=== PATIENT | female | born 1975 | race Caucasian/White ===

== ENCOUNTER 2018-06-12 12:02 | Outpatient (REF) | payer OTHER, SELFPAY ==
[2018-06-12 21:55] LABS: FREE T4 1.25 ng/dL (0.76-1.46); TSH 0.05 uIU/mL (0.358-3.74)
== END 2018-06-12 12:03 ==
LOC: NCHCN 12:02
PROVIDERS: PCP Family Medicine; Visit Provider Nurse Practitioner
DX: E03.9 Hypothyroidism, unspecified (principal)
CPT/HCPCS: 84439; 84443

== ENCOUNTER 2018-10-17 07:29 | Outpatient (CLI) | payer OTHER, SELFPAY ==
[2018-10-17 08:11] LABS: Abs Immature Grans 0.02 k/cumm (0.0-0.09); Absolute Basophil Count 0.03 k/cumm (0.0-0.2); Absolute Eosinophil Count 0.03 k/cumm (0.0-0.7); Absolute Lymphocyte Count 2.65 k/cumm (1.2-3.4); Absolute Monocyte Count 0.49 k/cumm (0.11-0.7); Absolute Neutrophil Count 5.38 k/cumm (1.2-6.7); Basophils % 0.3; Eosinophils % 0.3; HCT 40.5 % (36.0-46.0); HGB 13.5 g/dL (12.0-15.5); Immature Grans % 0.2; Lymphocytes % 30.8; Mean Corp. HGB Concentration 33.3 g/dL (32.0-36.0); Mean Corpuscular Hemoglobin 31.3 pg (27.0-33.0); Monocytes % 5.7; Neutrophils % 62.7; Platelet Count 264 x1000/uL (130-400); RBC 4.31 m/cumm (4.00-5.20); RBC Distribution Width 13.1 % (11.7-14.6)
[2018-10-17 09:34] LABS: Iron 119 ug/dL (50-175); Total Iron Binding Capacity 398 ug/dL (250-450); Transferrin Sat 30 % (15-50)
[2018-10-17 10:05] LABS: ALT 15 U/L (12-78); AST 10 U/L (15-37); Albumin 3.6 g/dL (3.4-5.0); Alkaline Phosphatase 45 U/L (46-116); BUN 14 mg/dL (7-18); Bilirubin, Total 0.5 mg/dL (0.2-1.0); CREATININE 0.94 mg/dL (0.55-1.02); Calcium 9.2 mg/dL (8.5-10.1); Chloride 103 mmol/L (98-107); Cholesterol 189 mg/dL (50-200); Ferritin 46 ng/mL (8-388); Glucose 88 mg/dL (70-100); HDL Cholesterol 77 mg/dL (40-60); LDL CHOLESTEROL 93 mg/dL (<100); Potassium 3.6 mmol/L (3.5-5.1); Sodium 141 mmol/L (136-145); TSH (W/Ref FT4) 5.48 uIU/mL (0.358-3.74); Total Protein 7.2 g/dL (6.4-8.2); Triglyceride 122 mg/dL (30-150); Vitamin B12 840 pg/mL (193-986)
[2018-10-17 10:32] LABS: FREE T4 0.94 ng/dL (0.76-1.46)
== END 2018-10-17 07:49 ==
PROVIDERS: PCP Family Medicine; Visit Provider Nurse Practitioner
DX: R53.83 Other fatigue (principal); Z00.00 Encounter for general adult medical examination without abnormal findings
CPT/HCPCS: 36415; 80053; 80061; 83721; 82607; 82728; 83540; 83550; 84439; 84443; 85025

== ENCOUNTER 2018-11-13 12:43 | Outpatient (REF) | payer OTHER, SELFPAY ==
[2018-11-13 21:07] LABS: TSH (W/Ref FT4) 3.74 uIU/mL (0.358-3.74)
== END 2018-11-13 13:03 ==
LOC: NCHCN 12:43
PROVIDERS: PCP Family Medicine; Visit Provider Nurse Practitioner
DX: E03.9 Hypothyroidism, unspecified (principal)
CPT/HCPCS: 84443

== ENCOUNTER 2019-09-08 10:24 | Outpatient (CLI) | payer OTHER, SELFPAY ==
[2019-09-08 12:29] LABS: TSH (W/Ref FT4) 0.91 uIU/mL (0.36-3.74)
== END 2019-09-08 10:44 ==
PROVIDERS: Specialist/Technologist Athletic Trainer; PCP Family Medicine; Visit Provider Family Medicine
DX: E03.9 Hypothyroidism, unspecified (principal)
CPT/HCPCS: 36415; 84443

== ENCOUNTER 2019-09-09 09:45 | Outpatient (REF) | payer OTHER, SELFPAY ==
[2019-09-09 14:01] LABS: C-Reactive Protein 0.08 mg/dL (0.0-0.3)
[2019-09-09 14:52] LABS: ESR 5 mm/hr (0-20)
[2019-09-10 22:08] LABS: Anaplasma phagocytophilum Negative (Negative); B. miyamotoi PCR Negative (Negative); Babesia divergens/MO-1 Negative (Negative); Babesia duncani Negative (Negative); Babesia microti Negative (Negative); Ehrlichia chaffeensis Negative (Negative); Ehrlichia ewingii/canis Negative (Negative); Ehrlichia muris eauclairensis Negative (Negative)
[2019-09-11 14:25] LABS: Lyme Ab w Rflx to Lyme Confirm Negative (Negative)
== END 2019-09-09 10:05 ==
LOC: NCHCN 09:45
PROVIDERS: PCP Family Medicine; Visit Provider Specialist/Technologist Athletic Trainer
DX: M79.10 Myalgia, unspecified site (principal)
CPT/HCPCS: 85652; 87798; 86140; 86618

== ENCOUNTER 2020-08-09 16:10 | Outpatient (CLI) | payer OTHER, SELFPAY ==
[2020-08-09 17:33] LABS: TSH (W/Ref FT4) 2.37 uIU/mL (0.36-3.74)
== END 2020-08-09 16:30 ==
PROVIDERS: PCP Family Medicine; Visit Provider Family Medicine
DX: E03.9 Hypothyroidism, unspecified (principal)
CPT/HCPCS: 36415; 84443

== ENCOUNTER 2020-09-14 12:05 | Outpatient (REF) | payer OTHER, SELFPAY ==
[2020-09-29 15:16] LABS: T3, Total 98 ng/dL
[2020-09-29 15:17] LABS: T3,Free 2.9 pg/mL
== END 2020-09-14 12:25 ==
LOC: NCHCN 12:05
PROVIDERS: PCP Family Medicine; Visit Provider Family Medicine
DX: R53.83 Other fatigue (principal)
CPT/HCPCS: 84480; 84481

== ENCOUNTER 2020-12-07 10:57 | Outpatient (CLI) | payer OTHER, SELFPAY ==
--- OUTSIDE RECORDS SUMMARY | 2020-12-07 11:00 | XMS_ITS ---
:1975 Author Care Team Providers Name Role Phone GLENN HALE MD Referring Provider [phone] SONJA LAGUNAS Primary Care Provider [phone] Allergies Code Code System Name Reaction Severity Status Onset [id number] RxNorm Biaxin Hives ? Active ? Sulfa Hives ? Active ? (Sulfonamide Antibiotics) Medications Name Status Start Date Stop Date ? ? amoxicillin 875 mg-potassium Completed ? clavulanate 125 mg tablet Culturelle Active ? Not available levothyroxine 50 mcg tablet Completed ? 05/29 levothyroxine 75 mcg tablet Completed ? 05/29 multivitamin Active ? Not available nitrofurantoin Completed ? 06/17/2018 monohydrate/macrocrystals 100 mg capsule NuvaRing 0.12 mg-0.015 mg/24 hr vaginal Completed ? 06/17/2018 oxycodone 5 mg tablet Completed ? 06/17/2018 tramadol 50 mg tablet Completed ? 06/17/2018 TriNessa (28) 0.18 mg(7)/0.215 Active ? N ot available mg(7)/0.25 mg(7)-35 mcg tablet Problems Name Status Onset Date Source ? Mammography Abnormal Active 06/17/2018 ? Procedures Date Name Performed by ? ? Other Information not kyle wells Notes: leep ? Surgical Breast Biopsy Information not a vailable Notes: FA left breast age 19 Results Lab Results None recorded. Past Encounters None recorded. Social History Tobacco Smoking Status Never Smoker Vaccine List None recorded. Plan of Care Reminders Provider Appointments None ? ? recorded. Lab None ? ? recorded. Referral None ? ? recorded. Procedures None ? ? recorded. Surgeries None ? ? recorded. Imaging None ? ? recorded. Vitals Height Weight BMI 5 ft 6 in 135 lbs 21.8 kg/m2
[2020-12-07 12:03] LABS: FREE T4 1.15 ng/dL (0.76-1.46); TSH 3.56 uIU/mL (0.36-3.74)
[2020-12-07 16:40] LABS: T3,Free 3.6 pg/mL (2.8-5.3)
== END 2020-12-07 10:58 | disposition home or self-care (01) ==
PROVIDERS: PCP Family Medicine; Visit Provider Family Medicine
DX: E03.9 Hypothyroidism, unspecified (principal)
CPT/HCPCS: 36415; 84439; 84443; 84481

== ENCOUNTER 2021-01-13 21:53 | Emergency (ER) | payer OTHER, SELFPAY ==
--- NOTE | 2021-01-13 21:53 | ED.GENADUL_ITS ---
Discharge Plan Disposition Patient Disposition: HOME Condition: Good Discharge Details Clinical Impression: Urticarial rash, Acute epigastric pain Primary Care Provider: Christi Rodriguez ED Provider: Christie Ortiz Home Meds and New Rx's Prescriptions: New hydroxyzine HCl 25 mg tablet 25 mg PO QID PRN (Reason: itching) Qty: 20 RF: 0 prednisone 10 mg tablet 10 mg PO DAILY Qty: 42 RF: 0 sucralfate [Carafate] 1 gram tablet 1 g PO QACHS Qty: 60 RF: 0 Continued levothyroxine 75 mcg tablet 75 mcg PO DAILY RF: 0 liothyronine 5 mcg tablet 5 mcg PO DAILY RF: 0 Discharge Instructions Instructions: Hydroxyzine (By injection), Urticaria (ED) Additional Instructions: Your imaging and labs are reassuring here today. You may use the hydroxyzine as prescribed to help with symptomatic management. You may also try [id number] antihistamines. Continue with your treatment for presumed GERD. Please follow-up with your primary care next 1 to 2 weeks for reevaluation. If you develop any new or worsening symptoms please seek care urgently once again. Referrals: Christi Rodriguez [Primary Care Provider] - Discharge Data Discharge Date/Time-TO BE ENTERED AT DEPARTURE: 01/13/21 23:55 Medical Decision Making <Sanjuanita Villarreal DO - Last Filed: 01/16/21 08:42> Chart clicked into in error by me while in the emergency department. <MICHELLE Covarrubias - Last Filed: 01/14/21 19:15> On the evening of 01-14-21 at approximately 1900 I received a call from radiology, Dr. Steele. He over read the CT imaging performed yesterday as subtle abnormal enhancement in the inferior aspect of the right hepatic lobe without a distinct mass or cyst at this level. Correlation with appropriate hepatic blood work is recommended. Recommend follow-up imaging with MRI. Approximately 1910 I was able to speak with the patient regarding the over read. She is aware, has no additional questions or concerns, and will follow up as an outpatient appropriately. <MICHELLE Sotelo - Last Filed: 01/15/21 21:53> Patient is a pleasant 28 year old female with PMH of hypothyroidism, presenting today with c/c of abdominal pain and rash. She states that the abdominal pain is in the epigasric and RUQ region. Reports that this radiates into the central chest. No poor taste in her mouth. States that symptoms can improve after burping or with PPI. She has not found pain significantly increased with PO intake. Has also started noting an intermittent, migratory urticarial rash. On exam, patient appears nontoxic. VS are stable. She initially had rash on the tops of her shoulders but this then came on a while later on her back. This has a raised urticarial appearance. She reports severe itching, will give Claritin for sympatomic relief. Lungs clear, normal cardiac exam. Tenderness to epigastric and RUQ but no peritoneal findings. Negative Hernandez's sign. Concerned for GERD, GB disease, pancreatitis vs. other. Find ACS less likely but plan to evaluate further with troponin and ECG. Patient has no pleuritic pain. She is PERC negative. Hx and exam is not consistent with dissection. ECG was reviewed by physician. Two ECG were obtained, one revealed NSR and another atrial bigeminy. She is not endorsing any palpitations. She did recently start on liothyronine and is wondering if this is related. She states she recently had her thyroid function checked through her PCP which was normal, will hold off on retesting at this time. Patient would like to discuss this medication possibly causing her symptoms further with her PCP. Labs reviewed. No acute abnormality on CBC, CMP, lipase, troponin. CT reviewed by radiologist: FINDINGS: Lungs: Hyperinflation. Pleural spaces: Unremarkable. No pneumothorax. No pleural effusion. Heart: Unremarkable. No cardiomegaly. No pericardial effusion. Mediastinal space: Normal esophagus. Aorta: Unremarkable. No aortic aneurysm. Lymph nodes: No adenopathy. Bones/joints: Unremarkable. No acute fracture. Soft tissues: Unremarkable. IMPRESSION: No acute findings. FINDINGS: Liver: Normal. No mass. Gallbladder and bile ducts: Normal. No calcified stones. No ductal dilation. Pancreas: Normal. No ductal dilation. Spleen: Normal. No splenomegaly. Adrenal glands: Normal. No mass. Kidneys and ureters: Normal. No hydronephrosis. Stomach and bowel: Unremarkable. No obstruction. No mucosal thickening. Appendix: Normal appendix. Intraperitoneal space: No free intraperitoneal gas. No ascites. Vasculature: Unremarkable. No abdominal aortic aneurysm. Lymph nodes: Unremarkable. No enlarged lymph nodes. Urinary bladder: Unremarkable as visualized. Reproductive: Anteverted uterus. 3.2 cm left ovarian cyst with trace surrounding free fluid 1.8 cm right ovarian cyst. Bones/joints: Unremarkable. No acute fracture. Soft tissues: Unremarkable. IMPRESSION: 1. Involuting 3.2 cm left ovarian cyst suspected. 2. 1.8 cm right ovarian cyst. Discussed findings with the patient. Will prescribe atarax as the itching has made it difficult for her to sleep. She will continue with OTC medications to help with symptomatic management. She will try to identify possible triggers for rash. Return precautions were discussed. Advised f/u with PCP. All of her questions and concerns were addressed, she is in agreement wit his plan. After discharge, patient and I discussed prednisone once again. She would like to try steroids for her severe urticarial rash. She did have her COVID 19 vaccine one month ago not long prior to her onset of symptoms. Quesitoning if this could be related. Spoke with patient again after her discharge. Initially she had not had much response to carafate but has found this more helpful now. Is requesting presciption for this. HPI <Sanjuanita Villarreal DO - Last Filed: 01/16/21 08:42> General Date/Time Provider Initiated Documentation: 01/13/21 21:53 . Related Data Home Medications Medication Instructions Recorded Confirmed hydroxyzine HCl 25 mg PO QID PRN #20 tab 01/13/21 levothyroxine 75 mcg PO DAILY 01/13/21 01/13/21 liothyronine 5 mcg PO DAILY 01/13/21 01/13/21 prednisone 10 mg PO DAILY #42 tab 01/13/21 sucralfate [Carafate] 1 g PO QACHS #60 tab 01/15/21 Previous Rx's Medication Instructions Recorded hydroxyzine HCl 25 mg PO QID PRN #20 tab 01/13/21 prednisone 10 mg PO DAILY #42 tab 01/13/21 sucralfate [Carafate] 1 g PO QACHS #60 tab 01/15/21 Allergies Allergy/AdvReac Type Severity Reaction Status Date / Time clarithromycin Allergy Intermediate Verified 01/13/21 22:39 Sulfa (Sulfonamide Allergy Intermediate Verified 01/13/21 22:39 Antibiotics) <MICHELLE Sotelo - Last Filed: 01/15/21 21:53> General Mode of arrival: ambulatory . Limitations to Documentation: no limitations . Information obtained by: patient and RN notes reviewed . History of Present Illness 45 year old F presents to the emergency department with the chief complaint of abdominal discomfort, weight loss, rash, described as moderate (pain can wax and wane, can become severe), Quality is described as burning, and is localized to the chest and abdomen. Patient reports no radiation. Patient started experiencing this week(s) and it has been intermittent. Medication improves symptom(s), (can have brief imporvement with TUMS, carafate or ) No exacerbating factors reported . Patient notes chest pain, loss of appetite (has lost 10lb) and rash (migratory urticarial rash); denies diaphoresis, fever/chills, nausea/vomiting and shortness of breath. Patient did receive the following treatments prior to arrival, other (antiinflammator ies, PPI) <MICHELLE Sotelo - Last Filed: 01/15/21 21:53> Constitutional Constitutional: Reports as per HPI, Denies chills, Denies fever(s), Denies headache(s) and Reports weight loss Eyes Eyes: Denies change in vision ENT Ears, Nose, Mouth, and Throat: Denies dizziness and Denies headache(s) Cardiovascular Cardiovascular: Reports as per HPI, Reports chest pain at rest, Denies chest pain with activity, Denies leg edema, Denies radiating jaw, neck or arm pain, Denies dyspnea and Denies dyspnea on exertion Respiratory Respiratory: Reports as per HPI, Denies chest congestion, Denies cough, Denies pain on inspiration, Denies pain with cough, Denies dyspnea, Denies dyspnea on exertion and Denies wheezing Gastrointestinal Gastrointestinal: Reports as per HPI, Reports abdominal pain (RUQ and epigastric pain), Denies hematochezia, Denies change in bowel habits, Denies coffee ground emesis, Denies diarrhea, Denies nausea and Denies vomiting Genitourinary Genitourinary: Reports system reviewed and no additional complaints, except as documented (denies change in urinary habits) Musculoskeletal Musculoskeletal: Reports as per HPI and Denies back pain Integumentary/Breasts Skin/Breast: Reports as per HPI and Reports rash Neurologic Neurologic: Reports as per HPI, Denies dizziness and Denies headache(s) Allergic/Immunologic Allergic/Immunologic: Denies wheezing PFSH <Sanjuanita J Bugbee, DO - Last Filed: 01/16/21 08:42> Social History Smoking risk assessment performed?: No Substance use type: does not use Do you feel safe at home: Yes Do you feel safe in your relationship?: Yes <MICHELLE Sotelo - Last Filed: 01/15/21 21:53> Const General: cooperative, healthy appearing, comfortable, no acute distress and well developed Nutritional Appearance: average body habitus and well nourished Orientation: alert, awake and oriented x3 HENMT Head: normal to inspection Ears: hearing grossly normal bilaterally Mouth: moist mucous membranes Resp Effort & Inspection: normal respiratory effort, able to speak in complete sentences and no respiratory distress Auscultation: clear to auscultation bilaterally, no rales, no rhonchi and no wheezes Cardio Rate: regular rate Rhythm: regular rhythm Heart Sounds: S1 normal and S2 normal GI Inspection: normal to inspection, no edema and non-distended Palpation: soft, no hepatosplenomegaly, not firm, no guarding, not rigid and tender in the epigastrum and in the RUQ; Hernandez's sign negative Auscultation: normal bowel sounds Back/Spine/Pelvis Thoracic/Lumbar Spine: other (rash) Skin Rashes: rashes noted (rash initially on shoulders, moved to back. Raised, urticarial rash) and other (excoriated regions) Neuro General: patient alert, patient awake and patient oriented x3 Cognition: normal cognition Speech: speech normal Gait: normal gait Extrem General: normal to inspection, capillary refill normal, no pedal edema, no calf tenderness and normal gait Psych Appearance: grossly normal and well kempt Mental Status: mental status grossly normal Speech and Movement: speech and movement normal
--- NOTE | 2021-01-13 22:00 | RT.EKG_ITS ---
APPROVED REPORT Exam: Resting ECG Patient Location: E HR:74 bpm ECG Measurements Heart Rate 74 AXIS NE 136 P 80 QRSd 104 QRS 71 QT 398 T 85 QTc 443 Conclusion Sinus rhythm...normal P axis, V-rate 60- 99 Supraventricular bigeminy...bigeminy string>4 w/ SV complexes I have reviewed and interpreted ECG and agree with software generated interpretation.
[2021-01-13 22:04] VITALS: BP 115/73; PULSE 73; RESP 15; TEMP 36.4; O2SAT 98
[2021-01-13] MEDS: Loratidine 10 MG TAB 20 MG PO (22:10)
[2021-01-13 22:16] LABS: Abs Immature Grans 0.02 10^3/uL (0.0-0.06); Absolute Basophil Count 0.04 10^3/uL (0.0-0.2); Absolute Eosinophil Count 0.16 10^3/uL (0.0-0.7); Absolute Lymphocyte Count 3.26 10^3/uL (1.2-3.4); Absolute Monocyte Count 0.46 10^3/uL (0.1-0.8); Absolute Neutrophil Count 3.27 10^3/uL (1.2-6.7); Basophils % 0.6; Eosinophils % 2.2; HCT 43.2 % (36.0-46.0); HGB 14.4 g/dL (11.2-15.7); Immature Grans % 0.3; Lymphocytes % 45.2; MCH 31.2 pg (27.0-33.0); MCHC 33.3 % (32.0-36.0); MCV 93.7 fL (80-95); MPV 10.2 fL (8.0-11.0); Monocytes % 6.4; Neutrophils % 45.3; Nucleated RBC 0 %; Platelet Count 285 10^3/uL (130-400); RBC 4.61 10^6/uL (3.93-5.22); RDW 12.3 % (11.7-14.6); RDW-SD 42.5 fL; WBC 7.21 10^3/uL (4.4-10.8)
--- NOTE | 2021-01-13 22:23 | DI.CT_ITS ---
EXAM: CT CHEST/ABD/PEL W CLINICAL HISTORY: low CP/RUQ/epigastric pain, urticaria. TECHNIQUE: Imaging Protocol: Axial computed tomography images with coronal and sagittal reformatted images were created and reviewed CONTRAST MATERIAL: Intravenous: Omnipaque 350 Contrast volume:100 ml Oral: None COMPARISON: No exams were available for comparison FINDINGS: CHEST: LUNGS: Lungs are clear with no infiltrates nor pleural effusions. No ominous pulmonary nodules. MEDIASTINUM: There is no hilar nor mediastinal adenopathy. Visualized thyroid unremarkable. CARDIAC: Heart size is normal. There is no pericardial effusion.Caliber of the thoracic aorta is wit hin normal limits. OSSEOUS: No significant osseous lesions.. ABDOMEN: There is no ascites. LIVER: Slight irregularity of the enhancement pattern the inferior aspect of the right hepatic lobe i s noted but without a distinct mass at this level. There is no perihepatic ascites. No significant steatosis. GALLBLADDER/BILIARY: No obvious gallbladder pathology. CBD diameter is slightly prominent measuring 7.5-8 millimeters. There is no calculus evident in the lower CBD. No obvious pancreatic head mass. PANCREAS: No evidence of pancreatic mass nor dilatation of the pancreatic duct. SPLEEN: Spleen is not enlarged. There are no intrasplenic lesions. Splenic and portal veins are gustafson nt. ADRENALS: There are no significant adrenal masses. KIDNEYS: No calculi nor hydronephrosis. No solid renal masses. No cysts evident. ABDOMINAL AORTA: Abdominal aorta is not enlarged. LYMPH NODES: There is no retroperitoneal nor paraaortic adenopathy. ABDOMINAL WALL/GI: No evidence of significant anterior abdominal wall hernia. No bowel obstruction. PELVIS: LYMPH NODES: There is no intrapelvic nor inguinal adenopathy. GI: No evidence of appendicitis.No evidence of sigmoid diverticulitis. URINARY BLADDER: No calculi nor masses evident REPRODUCTIVE: Uterus is anteverted. In the high left adnexa there is a 2.6 by 2.7 cm cystic structur e which may be ovarian. Smaller ovarian cyst is seen on the opposite-right side. No obvious free fl uid in the pelvis. OSSEOUS: No significant osseous lesions. IMPRESSION: 1. In the high left adnexa there is a 2.7 x 2.6 centimeter cystic structure which is probably ovarian . Smaller cysts noted in the right adnexa. No free fluid. 2. There is subtle abnormal enhancement in the inferior aspect of the right hepatic lobe without a di stinct mass or cyst at this level. Correlation with appropriate hepatic blood work is recommended. Recommend follow-up imaging with MRI. 3. Mild dilatation of the CBD for this age group. No obvious calculus nor mass in the lower CBD. No pancreatic head mass evident. The pancreatic duct is not dilated. This study was 1st read by [facility]. Final report called by myself to [facility] ER provider Saturday01/14/2021 RADIATION DOSE DELIVERED: 896.52mGy.cm Total DLP DATA REPOSITORY: All CT scans at this facility are submitted to the National Radiology Data Registry (NRDR) Dose Index Registry (DIR) with the [employer] (A[employer]). RADIATION OPTIMIZATION: All CT scans at this facility use at least one of these dose optimization te chniques: automated exposure control; mA and/or kV adjustment per patient size (includes targeted exa ms where dose is matched to clinical indication); or iterative reconstruction.
[2021-01-13] MEDS: Normal Saline - Diluent 50 ML VIAL IV (22:29)
[2021-01-13] MEDS: Omnipaque 350 MG/ML 100 ML BTL IJ (22:30)
[2021-01-13 22:33] LABS: ALT 18 U/L (14-59); AST 12 U/L (15-37); Albumin 3.8 g/dL (3.4-5.0); Alkaline Phosphatase 55 U/L (46-116); Anion Gap 9.6 mmol/L (3-11); BUN 22 mg/dL (7-18); Bilirubin, Total 0.5 mg/dL (0.2-1.0); CO2 27.4 mmol/L (21.0-32.0); Calcium 8.9 mg/dL (8.5-10.1); Chloride 105 mmol/L (98-107); Glucose 87 mg/dL (74-106); Lipase 227 U/L (73-393); Magnesium 2.1 mg/dL (1.8-2.4); Potassium 3.5 mmol/L (3.5-5.1); Sodium 142 mmol/L (136-145); Total Protein 7.7 g/dL (6.4-8.2)
[2021-01-13] MEDS: Lactated Ringers 1,000 ML 1000 ML IV (22:36)
[2021-01-13 22:39] LABS: Troponin I < 0.05 ng/mL (<0.06)
[2021-01-13] MEDS: hydrOXYzine HCL 25 MG TAB 100 MG PO (22:40)
--- NOTE | 2021-01-13 22:41 | DI.VRAD_ITS ---
PROCEDURE INFORMATION: Exam: CT Chest With Contrast; Diagnostic Exam date and time: 01/13/2021 10:05 PM Age: 45 years old Clinical indication: Abdominal pain; Type not specified; Patient HX: Low chest pain/ruq pain, . epigastric pain, urticaria TECHNIQUE: Imaging protocol: Diagnostic computed tomography of the chest with contrast. Radiation optimization: All CT scans at this facility use at least one of these dose optimization techniques: automated exposure control; mA and/or kV adjustment per patient size (includes targeted exams where dose is matched to clinical indication); or iterative reconstruction. Contrast material: OMNI-PAQUE 350; Contrast volume: 100 ml; Contrast route: INTRAVENOUS (IV); COMPARISON: No relevant prior studies available. FINDINGS: Lungs: Hyperinflation. Pleural spaces: Unremarkable. No pneumothorax. No pleural effusion. Heart: Unremarkable. No cardiomegaly. No pericardial effusion. Mediastinal space: Normal esophagus. Aorta: Unremarkable. No aortic aneurysm. Lymph nodes: No adenopathy. Bones/joints: Unremarkable. No acute fracture. Soft tissues: Unremarkable. IMPRESSION: No acute findings. PROCEDURE INFORMATION: Exam: CT Abdomen And Pelvis With Contrast Exam date and time: 01/13/2021 10:05 PM Age: 45 years old Clinical indication: Abdominal pain; Type not specified; Patient HX: Low chest pain/ruq pain, . epigastric pain, urticaria TECHNIQUE: Imaging protocol: Computed tomography of the abdomen and pelvis with contrast. Radiation optimization: All CT scans at this facility use at least one of these dose optimization techniques: automated exposure control; mA and/or kV adjustment per patient size (includes targeted exams where dose is matched to clinical indication); or iterative reconstruction. Contrast material: OMNI-PAQUE 350; Contrast volume: 100 ml; Contrast route: INTRAVENOUS (IV); COMPARISON: No relevant prior studies available. FINDINGS: Liver: Normal. No mass. Gallbladder and bile ducts: Normal. No calcified stones. No ductal dilation. Pancreas: Normal. No ductal dilation. Spleen: Normal. No splenomegaly. Adrenal glands: Normal. No mass. Kidneys and ureters: Normal. No hydronephrosis. Stomach and bowel: Unremarkable. No obstruction. No mucosal thickening. Appendix: Normal appendix. Intraperitoneal space: No free intraperitoneal gas. No ascites. Vasculature: Unremarkable. No abdominal aortic aneurysm. Lymph nodes: Unremarkable. No enlarged lymph nodes. Urinary bladder: Unremarkable as visualized. Reproductive: Anteverted uterus. 3.2 cm left ovarian cyst with trace surrounding free fluid 1.8 cm right ovarian cyst. Bones/joints: Unremarkable. No acute fracture. Soft tissues: Unremarkable. IMPRESSION: 1. Involuting 3.2 cm left ovarian cyst suspected. 2. 1.8 cm right ovarian cyst. Dictated and Authenticated by: Roberto Veras MD. Ordering:JONNA Soriano MD
== END 2021-01-13 23:55 | disposition home or self-care (01) ==
PROVIDERS: Emergency Provider Physician Assistant; PCP Family Medicine
DX: R10.13 Epigastric pain (principal); L50.8 Other urticaria
CPT/HCPCS: 74177; 80053; 81025; 83690; 93005; 99285; 71260; 83735; 84484; 85025; 93010; 99283; J3490

== ENCOUNTER 2021-01-16 09:05 | Outpatient (CLI) | payer OTHER, SELFPAY ==
--- NOTE | 2021-01-16 08:37 | DI.MRI_ITS ---
EXAM: MR ABDOMEN WO/W CLINICAL HISTORY: right hepatic lobe enhancement on CT TECHNIQUE: Multiplanar multisequence MRI was performed with both pre and post contrast infused seque nces. Contrast injected sequences were performed following IV injection of 11 cc of Dotarem. COMPARISON: CT CT CHEST/ABD/PEL W from 01/13/2021 FINDINGS: VISUALIZED LUNG BASES: No pleural effusions evident. LIVER: Liver size is normal. There is no significant steatosis. There are no discrete focal hepatic lesions identified. No cysts nor hemangiomas evident in the liver. In addition, the area of asymme tric enhancement in the inferior right hepatic lobe seen on the recent CT scan does not exhibit signi ficant signal abnormality nor abnormal enhancement pattern on today's contrast infused MRI. There is , however, a tiny amount of fluid subjacent to the right hepatic lobe. BILIARY: There is no obvious gallbladder pathology. The CBD is not dilated. PANCREAS: There is no evidence of pancreatic mass nor dilatation of the pancreatic duct.No peripancre atic fluid collection. SPLEEN: Spleen is not enlarged and there are no intrasplenic lesions.Splenic and portal veins are pat ent ADRENALS: There are no significant adrenal masses. KIDNEYS: No solid renal masses. No hydronephrosis.No cysts evident. ABDOMINAL AORTA: Not enlarged and there is no significant para-aortic adenopathy. ANTERIOR ABDOMINAL WALL/GI: There is no evidence of significant anterior abdominal wall hernia in the field of view of this study.Is no evidence of obvious bowel obstruction. OSSEOUS: There are no lytic osseous lesions in the field of view of this study. IMPRESSION: 1. No significant focal hepatic findings. The inferior aspect of the right hepatic lobe (which exhib ited slightly abnormal enhancement on recent CT scan) appears unremarkable on this MRI examination. No evidence of mass, cyst, or hemangioma in the liver. There is, however, a tiny amount of fluid sub jacent to the right attempts-subjacent to the inferior tip of the right hepatic lobe. This is minima l. 2. No other significant findings on this MRI scan of the upper abdomen. 3. DATA REPOSITORY:
[2021-01-16] MEDS: Gadoterate meglumine 20 ML VIAL 11 ML IVP (13:04)
== END 2021-01-16 09:25 ==
PROVIDERS: PCP Family Medicine; Visit Provider Physician Assistant
DX: R93.2 Abnormal findings on diagnostic imaging of liver and biliary tract (principal); K76.89 Other specified diseases of liver
CPT/HCPCS: 74183

== ENCOUNTER 2021-02-24 02:22 | Outpatient (CLI) | payer OTHER, SELFPAY ==
[2021-02-24 10:24] LABS: Source Nasal/Nares
[2021-02-24 13:33] LABS: COVID-19 PCR Negative (Negative)
== END 2021-02-24 02:23 | disposition home or self-care (01) ==
PROVIDERS: PCP Family Medicine; Visit Provider Surgery Plastic and Reconstructive Surgery
DX: Z20.822 Contact with and (suspected) exposure to COVID-19 (principal); Z01.818 Encounter for other preprocedural examination
CPT/HCPCS: 87635

== ENCOUNTER 2021-05-26 07:22 | Outpatient (CLI) | payer OTHER, SELFPAY ==
[2021-05-26 08:17] LABS: Source Nasal/Nares
[2021-05-26 09:09] LABS: COVID-19 PCR Negative (Negative)
== END 2021-05-26 07:23 | disposition home or self-care (01) ==
PROVIDERS: PCP Family Medicine; Visit Provider Student in an Organized Health Care Education/Training Program
DX: Z20.822 Contact with and (suspected) exposure to COVID-19 (principal)
CPT/HCPCS: 87635

== ENCOUNTER 2022-11-23 22:46 | Emergency (ER) | payer OTHER, SELFPAY ==
[2022-11-23 22:46] VITALS: BP 112/64; PULSE 91; RESP 16; TEMP 36.1; O2SAT 100
[2022-11-23] MEDS: Dexamethasone 10 MG/ML VIAL PO (22:50)
[2022-11-23] MEDS: Ketorolac 60 MG/2 ML VIAL IM (22:51)
--- NOTE | 2022-11-23 22:53 | W.ED.GENAD ---
Discharge Plan Disposition Patient Disposition: Home Condition: Stable Discharge Details Clinical Impression: URI (upper respiratory infection) Primary Care Provider: Christi Rodriguez ED Provider: Tracy Monreal Home Meds and New Rx's Prescriptions: No Action multivitamin Tablet 1 tab PO DAILY calcium carb,lactat-vitamin D3 200 mg-6.25 mcg (250 unit) tablet See Rx Instructions PO DAILY Rx Instructions: orally daily; Hair,Skin and Nails Tablet 1 tab PO DAILY levothyroxine 75 mcg tablet 75 mcg PO DAILY liothyronine 5 mcg tablet 5 mcg PO DAILY Label Comments: TAKE 1 TABLET BY MOUTH EVERY DAY Discharge Instructions Instructions: Upper Respiratory Infection (ED) Referrals: Christi Rodriguez [Primary Care Provider] - Return if symptoms worsen Medical Decision Making 47-year-old female presents to the ER with chief complaint of sore throat, body aches chills and URI type symptoms last few days. She has had negative rapid COVID test prior to arrival. 60 mg IM Toradol, 10 of dexamethasone PO and rapid strep swab ordered. Rapid strep negative. Patient's presentation consistent with viral illness. Patient discharged. This text was generated using [employer] system, please disregard any oddities of phrase or misspellings. HPI General Mode of arrival: ambulatory. Date/Time Provider Initiated Documentation: 11/23/22 22:47. Limitations to Documentation: no limitations. Information obtained by: patient, RN notes reviewed and old records reviewed. HPI Narrative: 47-year-old female presents to the ER with chief complaint of sore throat, body aches chills and URI type symptoms last few days. She has had negative rapid COVID test prior to arrival. She has been taking Tylenol and ibuprofen. Past medical history includes Hypothyroidism. Related Data Home Medications Medication Instructions Recorded Confirmed levothyroxine 75 mcg tablet 75 mcg PO DAILY 01/13/21 11/23/22 liothyronine 5 mcg tablet 5 mcg PO DAILY 01/13/21 11/23/22 calcium carb and lactate 200 See Rx Instructions PO DAILY 07/19/22 11/23/22 mg-vitamin D3 6.25 mcg (250 unit) tablet multivitamin 1 tab PO DAILY 07/19/22 11/23/22 multivitamin with minerals 1 tab PO DAILY 08/02/22 11/23/22 (Hair,Skin and Nails tablet) Allergies Allergy/AdvReac Type Severity Reaction Status Date / Time clarithromycin Allergy Intermediate Verified 11/23/22 23:10 Sulfa (Sulfonamide Allergy Intermediate Verified 11/23/22 23:10 Antibiotics) General PA: 3 Review of Systems Constitutional Constitutional: Reports body ache(s), Reports chills and Reports headache(s) ENT Ears, Nose, Mouth, and Throat: Reports as per HPI, Denies otalgia, Reports headache(s), Reports nasal congestion and Reports sore throat Cardiovascular Cardiovascular: Denies chest pain and Denies dyspnea Respiratory Respiratory: Denies dyspnea Gastrointestinal Gastrointestinal: Denies diarrhea, Denies nausea and Denies vomiting Neurologic Neurologic: Reports headache(s) PFSH All Active Problems (Updated 11/23/22 @ 23:00 by Tracy Monreal NP) Urticarial rash (Acute) Acute epigastric pain (Acute) URI (upper respiratory infection) (Acute) Encounter for screening for other viral diseases (Acute) Social History Smoking/Tobacco Use Status: Never Smoking risk assessment performed?: Yes Alcohol Intake: never Substance use type: does not use Do you feel safe at home: Yes Do you feel safe in your relationship?: Yes Exam HENMT Head: normal to inspection General nose exam: external nose normal Mouth: moist mucous membranes and no drooling Throat: posterior oropharynx abnormal erythema Resp Effort & Inspection: able to speak in complete sentences and no cough Auscultation: clear to auscultation bilaterally Cardio Rate: regular rate Rhythm: regular rhythm
== END 2022-11-23 23:09 | disposition home or self-care (01) ==
LOC: ER 23:15
PROVIDERS: Emergency Provider Registered Nurse Emergency; PCP Family Medicine
DX: J06.9 Acute upper respiratory infection, unspecified (principal)
CPT/HCPCS: 87880; 96372; 99284; 87081; 99283; J1100; J1885

== ENCOUNTER 2022-12-23 04:06 | Emergency (ER) | payer OTHER, SELFPAY ==
--- NOTE | 2022-12-23 04:27 | ED.GENADUL_ITS ---
Discharge Plan Disposition Patient Disposition: Home Condition: Stable Discharge Details Clinical Impression: UTI (urinary tract infection) Primary Care Provider: Christi Rodriguez ED Provider: Sanjuanita Villarreal Home Meds and New Rx's Prescriptions: Continued multivitamin Tablet 1 tab PO DAILY calcium carb,lactat-vitamin D3 200 mg-6.25 mcg (250 unit) tablet See Rx Instructions PO DAILY Rx Instructions: orally daily; Hair,Skin and Nails Tablet 1 tab PO DAILY levothyroxine 75 mcg tablet 75 mcg PO DAILY liothyronine 5 mcg tablet 5 mcg PO DAILY Patient Comments: TAKE 1 TABLET BY MOUTH EVERY DAY Discharge Instructions Instructions: Urinary Tract Infection in Women (ED) Additional Instructions: Your lab findings are consistent with a urinary tract infection. Take the antibiotic as directed until finished Follow-up with your primary care doctor in 1 week. Return to the emergency department with any worsening or new concerning symptoms. Discharge Data Discharge Date/Time-TO BE ENTERED AT DEPARTURE: 12/23/22 07:24 Discharge Physician: Sanjuanita Villarreal Medical Decision Making 47-year-old female presents with suprapubic pressure and dysuria for the past 2 days. Urinalysis notes findings consistent with UTI. Cipro ordered. Prescription provided. Follow-up as needed. Medical Records Medical records reviewed: Yes I reviewed the patient's medical records. HPI General Mode of arrival: ambulatory . Date/Time Provider Initiated Documentation: 12/23/22 04:07 . Limitations to Documentation: no limitations . Information obtained by: patient . HPI Narrative: Pt is a 47yo F who presents to the ED w/ a c/o suprapubic pressure and dysuria for the past 2 days. Patient denies fever, nausea, vomiting, hematuria, urinary frequency or back pain. Related Data Home Medications Medication Instructions Recorded Confirmed levothyroxine 75 mcg tablet 75 mcg PO DAILY 01/13/21 11/23/22 liothyronine 5 mcg tablet 5 mcg PO DAILY 01/13/21 11/23/22 calcium carb and lactate 200 See Rx Instructions PO DAILY 07/19/22 11/23/22 mg-vitamin D3 6.25 mcg (250 unit) tablet multivitamin 1 tab PO DAILY 07/19/22 11/23/22 multivitamin with minerals 1 tab PO DAILY 08/02/22 11/23/22 (Hair,Skin and Nails tablet) Allergies Allergy/AdvReac Type Severity Reaction Status Date / Time clarithromycin Allergy Intermediate Verified 11/23/22 23:10 Sulfa (Sulfonamide Allergy Intermediate Verified 11/23/22 23:10 Antibiotics) General Stated Complaint: Urinary PA: 3 Review of Systems All systems reviewed & are unremarkable except as noted in HPI and below Constitutional Constitutional: Reports as per HPI, Denies chills and Denies fever(s) Eyes Eyes: Denies blurry vision ENT Ears, Nose, Mouth, and Throat: Denies dizziness, Denies sore throat and Denies throat swelling Cardiovascular Cardiovascular: Denies chest pain and Denies dyspnea Respiratory Respiratory: Denies cough and Denies dyspnea Gastrointestinal Gastrointestinal: Denies abdominal pain, Denies diarrhea and Denies vomiting Comments: suprapubic pressure Genitourinary Genitourinary: Denies hematuria and Reports dysuria Musculoskeletal Musculoskeletal: Denies back pain and Denies numbness Integumentary/Breasts Skin/Breast: Denies lesions and Denies rash Neurologic Neurologic: Denies dizziness, Denies localized weakness and Denies numbness Allergic/Immunologic Allergic/Immunologic: Denies throat swelling PFSH All Active Problems (Updated 12/24/22 @ 00:04 by YAW NDIAYE) UTI (urinary tract infection) (Acute) Urticarial rash (Acute) Acute epigastric pain (Acute) Encounter for screening for other viral diseases (Acute) Medical History (Updated 12/24/22 @ 00:04 by YAW NDIAYE) Hypothyroidism Surgical History (Updated 12/23/22 @ 04:29 by Sanjuanita Villarreal DO) No significant past surgical history Social History Smoking/Tobacco Use Status: Never Smoking risk assessment performed?: Yes Alcohol Intake: never Substance use type: does not use Do you feel safe at home: Yes Do you feel safe in your relationship?: Yes Exam Const General: cooperative, healthy appearing and no acute distress HENMT Head: normal to inspection Face and sinus: normal facial exam Eyes General: appearance normal, both eyes and all related structures Pupils: PERRL EOM: EOM intact bilaterally Neck Neck: normal visual inspection and No submandibular swelling Lymphatic: no lymphadenopathy noted Chest Chest: normal inspection of the chest and no tenderness Resp Effort & Inspection: normal respiratory effort and able to speak in complete sentences Auscultation: clear to auscultation bilaterally Cardio Rate: regular rate Rhythm: regular rhythm GI Inspection: normal to inspection Palpation: soft, not firm, not rigid and nontender Auscultation: normal bowel sounds Back/Spine/Pelvis Back: no CVA tenderness Skin General skin exam: no rashes or lesions noted Neuro General: patient alert, patient awake and patient oriented x3 Cognition: normal cognition Speech: speech normal Motor: muscle tone normal throughout Sensory Exam: no sensory deficits noted Extrem General: normal to inspection, full ROM, capillary refill normal, no calf tenderness bilaterally and no edema Psych Appearance: grossly normal Mental Status: mental status grossly normal Speech and Movement: speech and movement normal Affect: normal affect
[2022-12-23 04:28] LABS: Bilirubin Negative (Negative); Blood Trace-intact (Negative); Clarity Clear (Clear); Glucose 100 mg/dL (Negative); Ketones Negative (Negative); Leukocyte Esterase Negative (Negative); Nitrite Positive (Negative); Specific Gravity >= 1.030 (1.005-1.025)
[2022-12-23 04:38] LABS: Bacteria Few HPF (Negative); C & S Indicated? Yes; Casts Negative LPF (Negative); Crystals Negative HPF (Negative); Epithelial Cells Few HPF (Negative); Mucus Negative (Negative)
--- NOTE | 2022-12-26 08:31 | NUR.NOTE ---
Accessed chart to look up whether or not on antibiotic.Nursing Note:
== END 2022-12-23 07:24 | disposition home or self-care (01) ==
PROVIDERS: Emergency Provider Physician Assistant; PCP Family Medicine
DX: N39.0 Urinary tract infection, site not specified (principal)
CPT/HCPCS: 87077; 99283; 81003; 81015; 87086; 87186

== ENCOUNTER 2023-05-16 02:17 | Outpatient (CLI) | payer OTHER, SELFPAY ==
[2023-05-16 10:15] LABS: FREE T4 0.77 ng/dL (0.76-1.46); TSH 7.79 uIU/mL (0.36-3.74)
[2023-05-16 19:49] LABS: T3, Total 115 ng/dL (97-169)
== END 2023-05-16 02:18 | disposition home or self-care (01) ==
LOC: LBO 02:29
PROVIDERS: PCP Family Medicine; Visit Provider Family Medicine
DX: E03.9 Hypothyroidism, unspecified (principal); R53.83 Other fatigue
CPT/HCPCS: 36415; 84439; 84443; 84480

== ENCOUNTER 2023-06-26 02:04 | Outpatient (CLI) | payer OTHER, SELFPAY ==
[2023-06-26 10:59] LABS: T4 8.7 ug/dL (4.7-13.3); TSH 7.54 uIU/mL (0.36-3.74)
[2023-06-26 17:47] LABS: T3, Total 118 ng/dL (97-169)
== END 2023-06-26 02:05 | disposition home or self-care (01) ==
LOC: LBO 02:04
PROVIDERS: PCP Family Medicine; Visit Provider Family Medicine
DX: E03.9 Hypothyroidism, unspecified (principal); R53.83 Other fatigue
CPT/HCPCS: 36415; 84436; 84443; 84480

== ENCOUNTER → 2023-09-30 02:23 | Outpatient (CLI) | payer OTHER, SELFPAY ==
--- NOTE | 2023-09-30 | DI.MRI_ITS ---
Exam(s) MR LOWER JOINT LT WO EXAM: MR LOWER JOINT LT WO CLINICAL HISTORY: LEFT HIP PAIN M25.552 TECHNIQUE: Multiplanar multisequence MRI of the hip was performed. COMPARISON: CT CT CHEST/ABD/PEL W from 01/13/2021 FINDINGS: MARROW:There is no evidence of fracture, bone contusion, nor avascular necrosis. There are no signif icant osseous lesions.There is no significant osseous excrescence at the femoral head-neck junction t o suggest the presence of cam-type SABINA. EFFUSION: Minimal amount of increased joint fluid, probably upper normal. No evidence of loose intra -articular bodies. BURSAE: There is no evidence of trochanteric bursitis. There is no evidence of iliopsoas bursitis. HIP JOINT SPACE: No obvious chondral defects. No degenerative subarticular cysts in the femoral head and osseous glenoid. There is no hypertrophy of the ligamentum teres nor signal abnormality at the fovea centralis. LABRUM: There is no evidence of obvious labral tear nor evidence of paralabral cyst. TENDONS: No evidence of tendinitis nor tendon tears. ISCHIAL TUBEROSITY/HAMSTRING: There is no abnormal intraosseous signal in the ipsilateral ischial tub erosity nor tear of the common hamstrings tendon attachment site at this level. OTHER: There is no abnormal intramuscular signal within the quadratus femoris to suggest the presence of impingement syndrome at this level. Right adnexal probable ovarian cyst measuring 1.7 by 1.6 by 1.4 cm. Smaller follicular cysts evident in the left ovary. IMPRESSION: 1. No significant findings in the left hip. No evidence of stress fracture, avascular necrosis, labr al tears, nor significant osteoarthritic degenerative changes. DATA REPOSITORY:
--- NOTE | 2023-09-30 | DI.MRI_ITS ---
Exam(s) MR LUMBAR SPINE WO EXAM: MR LUMBAR SPINE WO CLINICAL HISTORY: LT HIP JOINT PAIN M25.552 LOW BACK PAIN M54.5. TECHNIQUE: Multiplanar multisequence MRI of the Lumbar spine was performed. COMPARISON: There are no plain films of the lumbar spine available time this MRI interpretation. FINDINGS: Five lumbar vertebrae are presumed. Conus medullaris is at the L1 level. There is no evidence of conus mass nor subjacent clumping of in trathecal nerve roots to suggest arachnoiditis. The distal thecal sac appears unremarkable.There is no evidence of Tarlov intrasacral cysts nor other significant findings within the sacral canal Bones:There are no fractures nor ominous osseous lesions in the lumbar vertebral bodies and visualize d sacrum. Small intraosseous. Angioma is noted in the inferior half of T12 vertebral body. With respect to the individual levels... T12-L1: Unremarkable L1-2: Normal disc height and signal. No disc herniation nor central canal stenosis.No foraminal steno sis L2-3: Normal disc height. No disc herniation nor central canal stenosis.No foraminal stenosis.No face t arthropathy. L3-4: Normal disc height. No disc herniation or central canal stenosis.No foraminal stenosis.No face t arthropathy. L4-5: Normal disc height. There is mild annular bulging which is most prominent in the floor of the exiting left neural foramen. There is eccentric signal abnormality in the lateral annulus at this le mary lou consistent with radial tearing of the annulus but there is no prominent disc herniation at this l evel and no foraminal stenosis evident. There is also no central canal stenosis. No foraminal steno sis on the opposite-right side. No facet arthropathy. L5-S1: Normal disc height and signal. No disc herniation nor canal stenosis. No foraminal stenosis. No facet arthropathy. Soft tissues: paraspinal soft tissues appear unremarkable. IMPRESSION: 1. Mild findings at L4-5 level as described above. There is a lateral left radial annular tear at th e level of the exiting left neural foramen with mild annular bulging in the floor of the exiting left neural foramen but no foraminal stenosis on either side at this level. Also no central canal stenos is. 2. There is no significant facet arthropathy in the lumbosacral spinal column. DATA REPOSITORY:
== END ==
PROVIDERS: PCP Family Medicine; Visit Provider Family Medicine
DX: M51.87 Other intervertebral disc disorders, lumbosacral region (principal); M25.552 Pain in left hip
CPT/HCPCS: 73721; 72148

== ENCOUNTER 2023-10-18 12:25 | Outpatient (CLI) | payer OTHER, SELFPAY ==
[2023-10-18 13:30] LABS: FREE T4 1.16 ng/dL (0.76-1.46); TSH 3.79 uIU/mL (0.36-3.74)
[2023-10-18 22:18] LABS: T3, Total 127 ng/dL (97-169)
[2023-10-18 23:39] LABS: Thyroperoxidase Antibody >1300 U/mL (<=60)
== END 2023-10-18 12:26 | disposition home or self-care (01) ==
LOC: LBO 12:26
PROVIDERS: PCP Family Medicine; Visit Provider Student in an Organized Health Care Education/Training Program
DX: E03.8 Other specified hypothyroidism (principal)
CPT/HCPCS: 36415; 84436; 84439; 84443; 84480; 86376